=== PATIENT | male | born 1995 | race Caucasian/White ===

== ENCOUNTER 2017-12-11 21:24 | Emergency (ER) | payer OTHER ==
[2017-12-12] MEDS: IBUPROFEN 800 MG TAB PO (02:15)
[2017-12-12] MEDS: PENICILLIN V K 250 MG TAB PO (02:24)
== END 2017-12-12 02:54 | disposition home or self-care (01) ==
LOC: FTE 21:24
DX: J02.0 Streptococcal pharyngitis (principal)
CPT/HCPCS: 99283; Z7502